=== PATIENT | female | born 1940 | race Caucasian/White ===

== ENCOUNTER → 2020-07-26 08:28 | Outpatient (BNVA) | payer MEDICARE, OTHER, SELFPAY | PROVIDERS: Family Provider Nurse Practitioner Family; PCP Family Medicine; Referring Provider Ophthalmology; Visit Provider Specialist | DX: H47.013 Ischemic optic neuropathy, bilateral (principal); G37.9 Demyelinating disease of central nervous system, unspecified | CPT/HCPCS: 99204 ==

== ENCOUNTER → 2020-09-16 14:03 | Outpatient (BNVA) | payer MEDICARE, OTHER, SELFPAY | PROVIDERS: Family Provider Nurse Practitioner Family; PCP Family Medicine; Visit Provider Specialist | DX: H47.019 Ischemic optic neuropathy, unspecified eye (principal); G37.9 Demyelinating disease of central nervous system, unspecified | CPT/HCPCS: 99213 ==

== ENCOUNTER 2023-02-09 09:36 | Outpatient (CLI) | payer MEDICARE, OTHER, SELFPAY ==
--- NOTE | 2023-02-09 10:05 | XR_ITS ---
WS: [id number] Sacroiliac joints, 3 views, 02/09/2023 Clinical Data: PAIN IN RIGHT LEG Comparison: None. Findings: There are orthopedic screws fusing the right and left SI joints. 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 There are small anchors in the pubic symphysis bilaterally. There are no fractures or dislocations. The hips are normal. . XR/XR sacroiliac jts m [id number] Impression: Orthopedic fusions of both SI joints with 2 screws on the right and 3 screws on the left.
== END 2023-02-09 09:37 | disposition home or self-care (01) ==
PROVIDERS: PCP Family Medicine; Visit Provider Surgery
DX: M79.604 Pain in right leg (principal); Z98.1 Arthrodesis status
CPT/HCPCS: 72202

== ENCOUNTER 2024-06-01 10:05 | Outpatient (CLI) | payer MEDICARE, OTHER, SELFPAY ==
--- NOTE | 2024-06-01 10:06 | US_ITS ---
WS: [id number] ULTRASOUND BREAST RIGHT TECHNIQUE: Ultrasound right breast focused area of concern. CLINICAL INFORMATION: LYMPHADENOPATHY FINDINGS: Ultrasound RIGHT axilla area of concern. Normal-appearing lymph node in the area of concern measuring 5 x 7 mm. In addition, there is a shallow hypoechoic lesion also in an additional area of concern measuring 4 x 2 x 3 mm likely representing a sebaceous cyst. This is technically indeterminate and recommend surgi pretty resection. Biopsy not recommended due to risk of infection. US/US breast RT limited* [id number] IMPRESSION: Shallow hypoechoic lesion in the area of concern likely representing a sebaceou s cyst although technically indeterminant. Recommend surgical excision. Biopsy not recommended due to risk of infection.
== END 2024-06-01 10:06 | disposition home or self-care (01) ==
LOC: RAD 10:05
PROVIDERS: PCP Family Medicine; Visit Provider Registered Nurse
DX: N63.10 Unspecified lump in the right breast, unspecified quadrant (principal); R59.1 Generalized enlarged lymph nodes
CPT/HCPCS: 76642